=== PATIENT | female | born 1980 | race Caucasian/White ===

== ENCOUNTER → 2020-01-17 | Outpatient (CLI) | payer BC ==
[~2020-01-17] MED LIST: ACET325T9 PO; CETI10TA74 PO; DOXY100C2 PO; LANS30CA PO; LOSA100T14 PO
[2020-01-17 10:02] LABS: BASO # 0.1 x10^3/uL (0.0-0.2); BASO % 1 % (0-3); EOS # 0.2 x10^3/uL (0.0-0.7); EOS % 3 % (0-3); HEMATOCRIT 40.8 % (36.0-47.0); HEMOGLOBIN 13.8 g/dL (12.0-15.5); LYMPH # 1.4 x10^3/uL (1.0-4.8); LYMPH % 16 % (24-48); MEAN CORPUSCULAR HEMOGLOBIN 30 pg (25-35); MEAN CORPUSCULAR HGB CONC 34 g/dL (31-37); MEAN CORPUSCULAR VOLUME 90 fL (79-100); MONO # 0.8 x10^3/uL (0.0-1.1); MONO % 10 % (0-9); NEUT # 6.1 x10^3/uL (1.8-7.7); NEUT % 71 % (31-73); PLATELET COUNT 331 x10^3/uL (140-400); RED BLOOD COUNT 4.55 x10^6/uL (3.50-5.40); RED CELL DISTRIBUTION WIDTH 15.3 % (11.5-14.5); WHITE BLOOD COUNT 8.6 x10^3/uL (4.0-11.0)
== END | disposition home or self-care (01) ==
LOC: SURGPAT 09:26
PROVIDERS: ATTEND Obstetrics & Gynecology
DX: Z01.818 Encounter for other preprocedural examination (principal)
CPT/HCPCS: 36415; 85025; U0003-CS

== ENCOUNTER → 2020-01-20 | Outpatient (CLI) | payer BC ==
--- NOTE | 2020-01-22 18:40 | HP ---
ADMIT DATE: 01/22/2020 CHIEF COMPLAINT AND HISTORY OF PRESENT ILLNESS: This patient is a 39-year-old white female who is a 0, para 0, history of ovarian cyst and also blocked fallopian tubes. Her menstrual periods have been very heavy, having lower quadrant pain in both lower quadrants. She is a patient of Dr. Annabel Khalil referred for pelvic pain, heavy uterine bleeding and also history of ovarian cyst and she does have a history of kidney stones, which has been treated and she also has a GI problem and she is on medication for that. Her last Pap smear has remained normal and she has had a lithotripsy for removal of kidney stones. At the present time, she is admitted to the hospital because of constant pelvic pain and heavy bleeding with the period and also blocked fallopian tubes and ovarian cyst. ALLERGIES: None known. PAST MEDICAL HISTORY: Reveals she was a smoker, not alcoholic, not on any drugs. REVIEW OF SYSTEMS: Essentially negative. PHYSICAL EXAMINATION: GENERAL: Reveals she is obese. VITAL SIGNS: Stable. HEAD, EYES, NOSE, THROAT: Within normal limits. LUNGS: Clear. HEART: Sounds regular sinus rhythm. ABDOMEN: Feels soft, tenderness in both lower quadrants. PELVIC: Shows external genitalia being normal. Cervical os is closed. On bimanual exam, uterus feels bulky and tenderness in the right adnexal area and also mild tenderness in the left lower quadrant as well. No uterine bleeding noted at the time of the examination. EXTREMITIES: No edema of feet. IMPRESSION: Pelvic pain, menorrhagia, polycystic ovarian syndrome, blocked fallopian tubes. PLAN: Abdominal hysterectomy, bilateral salpingo-oophorectomy. The details of the surgery, the risks and complications including hemorrhage, infection, injury to the bladder or bowel has been explained to the patient and she is willing for the operation at the present time. ARNOLD KRUSE MD DR: HAROLDO/abhilash JOB#: [id number] / [id number]
--- NOTE | 2020-02-18 11:20 | DS ---
DATE OF DISCHARGE: 01/25/2020 SUBJECTIVE: The patient is a 39-year-old white female who is a 0, para 0 with history of ovarian cyst and also blocked fallopian tubes. Her menstrual periods have been very heavy, having lower quadrant pain on both lower quadrants in the abdomen. She was referred by her family physician, Dr. Annabel Khalil, for pelvic pain and heavy bleeding with the periods and also the history of ovarian cysts. She does also have a history of kidney stones, which has been treated. She has a GI problem as well and is on medication. The patient was admitted to the hospital for abdominal hysterectomy and bilateral salpingo-oophorectomy at this time. OBJECTIVE: VITAL SIGNS: Normal. HEAD, EYES, NOSE, AND THROAT: Within normal limits. LUNGS: Clear. HEART: Heart sounds regular sinus rhythm. ABDOMEN: Soft and tenderness in both lower quadrants. PELVIC: Shows external genitalia normal. Cervical os closed. On bimanual exam, uterus is slightly enlarged and bulky. Tenderness in the right adnexal area more than the left adnexal area. No uterine bleeding noted at the time of the examination. HOSPITAL COURSE: She did undergo abdominal hysterectomy and bilateral salpingo-oophorectomy under general anesthesia. Postoperatively, she did well. No complications. The patient was dismissed to home care on 01/25/2020 with the advice to come back to the office in 2 weeks for postoperative care and checkup, and she was sent home with pain pills and postop instructions at this time. DIAGNOSES: Pelvic pain, menorrhagia, polycystic ovaries, and blocked fallopian tubes. POSTOPERATIVE DIAGNOSES: Leiomyoma of the uterus, polycystic ovaries, and benign endometrium. PLAN: She will be followed in the office in 2 weeks for further care and treatment. ARNODL KRUSE MD DR: HAROLDO/abhilash JOB#: [id number] / [id number]
== END | disposition home or self-care (01) ==
LOC: LAB 10:11
PROVIDERS: ATTEND Obstetrics & Gynecology
DX: Z11.59 Encounter for screening for other viral diseases (principal)
CPT/HCPCS: U0003-CS

== ENCOUNTER 2020-01-23 07:32 | Inpatient (IN) | payer BC ==
[2020-01-23] VITALS (8 sets, daily range): BP systolic 110–156; BP diastolic 64–95
[~2020-01-23] VITALS: Ht 162.6 cm; Wt 78.0 kg
[~2020-01-23 07:32] MED LIST changes: -DOXY100C2 PO; +GELATIN SPONGE SIZE 100. ONE; +GELATIN SPONGE SIZE 12-7MM SPONGE. ONE; +IV RINGERS,LACTATED 1000ML 1,000 ML IV SCH; +LIDOCAINE 1% PF 2 ML VIAL. ID PRN; +ONDANSETRON PF 4 MG/2 ML VIAL. IV PRN; +PROCHLORPERAZINE 10 MG/2 ML VIAL. IV PRN; +fentaNYL PF VIAL 100 MCG/2 ML VIAL IV PRN
[2020-01-23] MEDS ORDERED: PROPOFOL 10 MG/ML (20ML) VIAL. IV ONE (08:45)
[2020-01-23] MEDS ORDERED: fentaNYL PF VIAL 100 MCG/2 ML VIAL ONE (08:45)
[2020-01-23] MEDS ORDERED: ROCURONIUM 50 MG/5 ML VIAL. ONE ×2 (08:46→09:17)
[2020-01-23] MEDS ORDERED: fentaNYL PF VIAL 250 MCG/5 ML VIAL ONE (09:18)
[2020-01-23] MEDS ORDERED: ONDANSETRON PF 4 MG/2 ML VIAL. ONE (09:44)
[2020-01-23] MEDS ORDERED: DEXAMETHASONE SOD PHOS 4 MG/ML VIAL ONE (09:44)
[2020-01-23] MEDS ORDERED: SEVOFLURANE > 120 MINUTES. IH ONE (10:37)
[2020-01-23] MEDS ORDERED: NEOSTIGMINE METHYLSULFATE 5 MG/5 ML SYRINGE. ONE (10:38)
[2020-01-23] MEDS ORDERED: GLYCOPYRROLATE 1 MG/5 ML VIAL. ONE (10:38)
[2020-01-23] MEDS ORDERED: MORPHINE SULFATE 2 MG/ML VIAL. ONE (10:56)
[2020-01-23] MEDS ORDERED: PROCHLORPERAZINE 10 MG/2 ML VIAL. ONE (10:56)
[2020-01-23] MEDS: MORPHINE SULFATE 2 MG/ML VIAL. IV PRN ×3 (11:00→11:16)
--- NOTE | 2020-01-23 11:02 | PDOC ---
GENERAL General: 39yrs old lady admitted for Pelvic Pain DUB and Ovarian Cyst. To have surgery done. VITAL SIGNS Vital Signs/I&O: Vital Signs Date Time Temp Pulse Resp B/P (MAP) Pulse Ox O2 Delivery O2 Flow Rate FiO2 01/23/20 08:11 98.0 66 20 150/81 97 Room Air 98.0 ALLERGIES Allergies: Allergies Coded Allergies Type Severity Reaction Last Updated Verified No Known Drug Allergies 01/23/20 No MEDS Medications: Current Medications Medications (Trade) Dose Ordered Sig/Kings Route PRN Reason Start Time Stop Time Status Last Admin Dose Admin Ringer's Solution 1,000 ml @ 30 mls/hr Q24H IV 01/23/20 07:00 01/23/20 18:59 01/23/20 08:44 LAB Lab: Laboratory Tests Test 01/23/20 08:13 POC Urine HCG, Qualitative Hcg negative (Negative) ASSESSMENT & PLAN A&P Under GA Abdominal Hysterectomy and Bilateral Salpingoophorectomy done. EBL 50cc. Bilatera Ovarian Cysts Noted. Justicifation of Admission Dx: Justifications for Admission: Justification of Admission Dx: Yes ARNOLD KRUSE MD Jan 23, 2020 11:02
--- NOTE | 2020-01-23 11:04 | OP ---
DATE OF SURGERY: 01/23/2020 PREOPERATIVE DIAGNOSES: Pelvic pain, polycystic ovarian syndrome, dysfunctional uterine bleeding. POSTOPERATIVE DIAGNOSES: Pelvic pain, polycystic ovarian syndrome, dysfunctional uterine bleeding. OPERATION PERFORMED: Abdominal hysterectomy and bilateral salpingo-oophorectomy. DESCRIPTION OF PROCEDURE: The patient was taken to the operating room under general anesthesia. She was placed in a dorsal supine position. Alfaro catheter introduced into bladder for continuous bladder drainage. Lower abdomen was prepped and draped in the usual manner. Pfannenstiel incision was made, abdomen opened in layers. Visualization of pelvic structures revealed enlarged ovaries on both sides and multiple cysts in the left ovary, which is larger than the right ovary, but both are cystic. The round ligament on either side was clamped, ligated, cut, and sutured with #1 chromic catgut sutures. The infundibulopelvic ligament on either side was clamped, ligated, cut, and sutured with #1 chromic catgut sutures. Thus, both the tubes and ovaries were removed and subjected for pathological examination and after this, the bladder flap peritoneum was dissected. Bladder was pushed way down the lower segment of the uterus and the uterine vessels on either side was isolated, ligated, and cut and sutured with #1 chromic catgut sutures and after the complete bladder reflection, the uterosacral cardinal ligaments on either side was clamped, ligated, cut, and sutured with #1 chromic catgut sutures and a stab wound incision was made below the cervix posteriorly first, incision was extended all around below the cervix. Thus, the uterus with the cervix was removed and subjected for pathological examination. Anterior and posterior vaginal antonio were brought together midline, sutured together using continuous 0 chromic catgut sutures. The angle of the vagina on either side was anchored to the uterosacral cardinal ligaments on either side using [id number] #1 chromic catgut sutures. After the closure of the vaginal cuff, a small piece of Gelfoam sponge was placed below the bladder flap peritoneum. Reperitonealization was done with continuous 0 chromic catgut sutures. After this, there was no bleeding noted. Abdomen closed in layers using continuous 0 chromic catgut sutures for the peritoneum, the muscle, the fascia, 3-0 plain continuous sutures applied for subcutaneous tissue, 3-0 Vicryl subcutaneous sutures were placed. Pressure dressing was given. The patient was sent to the recovery room in good condition. No complications encountered at time of the procedure. Estimated blood loss about 50 mL. Postoperative condition is stable. ARNOLD KRUSE MD DR: HAROLDO/abhilash JOB#: [id number] / [id number]
[2020-01-23] MEDS: HYDROmorphone 2 MG/ML VIAL IV PRN ×10 (11:05→21:45)
[2020-01-23] MEDS ORDERED: HYDROmorphone 2 MG/ML VIAL ONE ×2 (11:06→11:58)
[2020-01-23] MEDS ORDERED: MORPHINE SULFATE 4 MG/ML VIAL. IV PRN (13:30)
[2020-01-23] MEDS ORDERED: oxyCODONE/APAP 5/325 1 TAB TABLET PO PRN (13:30)
[2020-01-23] MEDS: oxyCODONE/APAP 5/325 1 TAB TABLET PO PRN ×2 (16:00→20:19)
--- NOTE | 2020-01-23 20:00 | NUR ---
Patient had a an estimated 270ml blood loss. There was a fully saturated pad and partially saturated check. Will continue to monitor
--- NOTE | 2020-01-24 00:42 | NUR ---
Patient had a 25ml blood clot on her menstrual pad. Patient is alert and orientated and vital signs are stable. Will continue to monitor.
[2020-01-24 00:45] VITALS: BP 152/93
[2020-01-24] MEDS: HYDROmorphone 2 MG/ML VIAL IV PRN ×2 (01:52→05:51)
[2020-01-24 06:05] VITALS: BP 123/90
--- NOTE | 2020-01-24 08:08 | PDOC ---
GENERAL General: Patient Feeling better. Abdomen soft. Has some Pelvic Pain. VITAL SIGNS Vital Signs/I&O: Vital Signs Date Time Temp Pulse Resp B/P (MAP) Pulse Ox O2 Delivery O2 Flow Rate FiO2 01/24/20 06:05 98.3 88 20 123/90 (101) Room Air 98.3 01/24/20 05:51 100 2.0 I & O 01/23/20 01/23/20 01/24/20 15:00 23:00 07:00 Intake Total 2000 ml 450 ml Output Total 500 ml 1400 ml 500 ml Balance 1500 ml -950 ml -500 ml ALLERGIES Allergies: Allergies Coded Allergies Type Severity Reaction Last Updated Verified No Known Drug Allergies 01/23/20 No MEDS Medications: Current Medications Medications (Trade) Dose Ordered Sig/Kings Route PRN Reason Start Time Stop Time Status Last Admin Dose Admin Morphine Sulfate (Morphine Sulfate) 4 mg PRN Q4HRS PRN IV PAIN 01/23/20 13:30 01/23/20 17:49 Oxycodone/ Acetaminophen (Percocet 5/325) 2 tab PRN Q4HRS PRN PO PAIN 01/23/20 14:00 01/23/20 20:19 Lorazepam (Ativan) 1 mg 1X PRN PO ANXIETY / AGITATION 01/23/20 19:30 01/23/20 19:32 Hydromorphone HCl (Dilaudid) 2 mg PRN Q4HRS PRN IV PAIN 01/23/20 19:30 01/24/20 05:51 LAB Lab: Laboratory Tests Test 01/23/20 08:13 POC Urine HCG, Qualitative Hcg negative (Negative) ASSESSMENT & PLAN A&P Vital Signs Stable. Incision healing ok. Explained to Patient Operative Findings. Patient had Large Ovarian Cysts on both sides. Plan Dismissal in Am tomorrow. Justicifation of Admission Dx: Justifications for Admission: Justification of Admission Dx: Yes ARNOLD KRUSE MD Jan 24, 2020 08:08
[2020-01-24] MEDS: DOCUSATE SODIUM 100 MG CAPSULE. PO PRN ×2 (08:31→20:16)
[2020-01-24] MEDS: oxyCODONE/APAP 5/325 1 TAB TABLET PO PRN ×4 (08:32→20:16)
[2020-01-24 08:45] VITALS: BP 129/91
[2020-01-24] MEDS ORDERED: FLUCONAZOLE 100 MG TABLET. PO SCH (11:30)
[2020-01-24] MEDS: IBUPROFEN 200 MG TABLET. PO PRN ×2 (14:26→20:16)
[2020-01-24 15:54] VITALS: BP 120/81
--- NOTE | 2020-01-24 18:06 | PATHOLOGY ---
[facility] Accession Number: [id number] . 01 Material submitted: . PART A: ovary - RIGHT FALLOPIAN TUBE AND OVARY. Modifiers: right PART B: ovary - LEFT FALLOPIAN TUBE, OVARY, AND UTERUS. Modifiers: left . 01 Clinical history: . DUB, pelvic pain, ovarian cyst . 02 Diagnosis: A. Fallopian tube and ovary, right salpingo-oophorectomy: - Endometriosis of fallopian tube, focal. - Mild hydrosalpinx. - Small paratubal cyst. - Hemorrhagic regressing luteinized cyst and small cystic follicle of ovary. . B. Uterus and detached fallopian tube and ovary, hysterectomy with left salpingo-oophorectomy: - Uterine serosal adhesions, focal. - Squamous hyperplasia and mild chronic inflammation of exocervix, focal. - Early secretory endometrium. - Adenomyosis, uterine corpus, subbasal, focal. - Mild hydrosalpinx of fallopian tube. - Cystic follicles and hemorrhagic corpus luteum cyst of ovary. . (JPM:dulce maria; 01/24/2020) [facility] 01/24/2020 1658 Local . 02 Comment: There is no atypia or evidence of malignancy. (JPM:dulce maria; 01/24/2020) . 02 Electronically signed: . Santino Lizama MD, Pathologist NPI- [id number] . 01 Gross description: . A. The specimen is received in formalin, labeled "Brandy Scot Saxena fallopian tube and ovary". Received is an 8 g clinically right adnexa consisting of a non-fimbriated fallopian tube measuring 6.5 cm in length by up to 1.0 cm in diameter attached to a 2.6 x 2.1 x 1.3 cm ovary. Sectioning through the fallopian tube reveals a pinpoint to dilated lumen filled with blood-tinged fluid. Sectioning through the ovary reveals several cystic structures ranging in size from 0.1 to 0.4 cm filled with clear fluid. The remaining cut surfaces display pale horton, normal ovarian stroma. The specimen is submitted representatively in cassette A1. . B. The specimen is received in formalin labeled "Evelyn Gongora fallopian tube, ovary, uterus". Received is a 48 g, 6.8 x 4.0 x 3.1 cm uterus with attached cervix and detached adnexa, weighing 12 g. The uterine serosa is pink-horton to pink-arriaga in appearance with a slight amount of adhesions identified on the posterior aspect. The 0.1 cm cervical os is surrounded by pale horton, smooth ectocervical mucosa. Surrounding the cervix, vaginal cuff is identified around the entire periphery. The uterus is oriented using the peritoneal reflection and the anterior paracervical margin is inked black. The uterus is opened laterally to reveal a pale horton endocervical canal measuring 2.5 cm in length. The endometrial cavity is triangular measuring 3.6 cm in length by 1.9 cm in width. The endometrium is pale horton, glistening in appearance and measures up to 0.2 cm in thickness. Serial sectioning reveals a horton-pink, trabeculated myometrium measuring up to 1.5 cm in thickness with no grossly distinct nodules or lesions. . The detached adnexa consists of a non-fimbriated fallopian tube measuring 6.1 cm in length by up to 1.6 cm in diameter attached to a 2.6 x 2.2 x 2.2 cm ovary. Sectioning through the fallopian tube reveals a patent to dilated lumen filled with clear fluid. Sectioning through the ovary reveals several cystic structures ranging in size from 0.4 to 0.5 cm filled with blood-tinged fluid. The remainder of the ovary displays pale horton, normal ovarian stroma. The specimen is submitted representatively as follows: . B1 12:00 cervix B2 6:00 cervix B3 serosal adhesions B4 anterior endomyometrium B5 posterior endomyometrium B6-B7 telecommunications sales representative sections of adnexa. (CAA; 01/23/2020) [facility] 1742 Local . 02 Pathologist provided ICD-10: N80.2, N70.11, N83.8, N72, N80.0 . 02 CPT . 217415 Specimen Comment: A courtesy copy of this report has been sent to [phone], [phone] Specimen Comment: [id number] Specimen Comment: Report sent to / DR MILLER Performed at: 01 [facility] [address], [place] [id number] MD Ariel Jefferson MD Phone: [phone] Performed at: 02 [facility] [address], [place] [id number] MD Santino Lizama MD Phone: [phone]
[2020-01-24 20:15] VITALS: BP 129/82
[2020-01-25] MEDS: oxyCODONE/APAP 5/325 1 TAB TABLET PO PRN ×2 (02:36→09:14)
[2020-01-25 02:45] VITALS: BP 123/84
[2020-01-25] MEDS: SIMETHICONE 80 MG TAB.CHEW PO PRN ×2 (02:49→09:13)
[2020-01-25] MEDS: IBUPROFEN 200 MG TABLET. PO PRN ×2 (06:16→13:39)
[2020-01-25] MEDS: DOCUSATE SODIUM 100 MG CAPSULE. PO PRN (09:13)
--- NOTE | 2020-01-25 09:36 | PDOC ---
GENERAL General: Patient has Nausea. No Fever. Likes to go home. VITAL SIGNS Vital Signs/I&O: Vital Signs Date Time Temp Pulse Resp B/P (MAP) Pulse Ox O2 Delivery O2 Flow Rate FiO2 01/25/20 09:14 18 Room Air 01/25/20 02:45 98.1 85 123/84 (97) 97 98.1 I & O 01/24/20 01/24/20 01/25/20 15:00 23:00 07:00 Intake Total 360 ml 1140 ml 400 ml Output Total 300 ml 200 ml Balance 60 ml 940 ml 400 ml ALLERGIES Allergies: Allergies Coded Allergies Type Severity Reaction Last Updated Verified No Known Drug Allergies 01/23/20 No MEDS Medications: Current Medications Medications (Trade) Dose Ordered Sig/Kings Route PRN Reason Start Time Stop Time Status Last Admin Dose Admin Fluconazole (Diflucan) 100 mg QODAY PO 01/24/20 11:30 01/24/20 12:18 Ibuprofen (Motrin) 600 mg PRN Q6HRS PRN PO INFLAMMATION 01/24/20 14:15 01/25/20 06:16 Simethicone (Gas-X) 80 mg PRN AFTMEALHC PRN PO GAS / BLOATING 01/25/20 02:45 01/25/20 09:13 ASSESSMENT & PLAN A&P Vital signs stable. Patient to go home today. Will see her in 2 weeks in office. Justicifation of Admission Dx: Justifications for Admission: Justification of Admission Dx: Yes ARNOLD KRUSE MD Jan 25, 2020 09:36
[2020-01-25] MEDS ORDERED: ACETAMINOPHEN 325 MG TABLET. PO PRN (10:45)
[2020-01-25 11:00] VITALS: BP 132/85
[2020-01-25] MEDS ORDERED: traMADol 50 MG TABLET PO PRN (12:15)
[2020-01-25] MEDS ORDERED: ONDANSETRON ODT 4 MG TAB.RAPDIS. PO PRN (12:15)
[2020-01-25] MEDS ORDERED: BISACODYL 10 MG SUPP.RECT. PR ONE (12:30)
--- NOTE | 2020-01-25 12:30 | NUR ---
Call placed to Dr. Singer regarding pt complaining of increase in pain and nausea. New orders for Zofran, tramadol and a dulcolax supp. Will monitor.
--- NOTE | 2020-01-25 13:45 | NUR ---
Pt reports nausea is gone, pain is a little better and she passed lots of gas but no stool at this time. She reports feeling like she will be able to have a BM when she gets home. I encouraged her to make she doesn't get constipated due to the pain medications. She reports having some laxatives at home.
[2020-01-25 13:48] VITALS: BP 134/85
--- NOTE | 2020-01-25 14:00 | NUR ---
Discharge and follow up instructions reviewed and given to pt. Rx x3 given and tramadol called into [facility] pharmacy on and . Pt verbalized discharge instructions and denied any questions or complaints. Pt ambulated out of the hospital with her sister and staff.
--- NOTE | 2020-01-29 12:57 | HP ---
ADMIT DATE: 01/23/2020 CHIEF COMPLAINT AND HISTORY OF PRESENT ILLNESS: This patient is a 39-year-old white female who is a 0, para 0, history of ovarian cyst and also blocked fallopian tubes. Her menstrual periods have been very heavy, having lower quadrant pain in both lower quadrants. She is a patient of Dr. Annabel Khalil referred for pelvic pain, heavy uterine bleeding and also history of ovarian cyst and she does have a history of kidney stones, which has been treated and she also has a GI problem and she is on medication for that. Her last Pap smear has remained normal and she has had a lithotripsy for removal of kidney stones. At the present time, she is admitted to the hospital because of constant pelvic pain and heavy bleeding with the period and also blocked fallopian tubes and ovarian cyst. ALLERGIES: None known. PAST MEDICAL HISTORY: Reveals she was a smoker, not alcoholic, not on any drugs. REVIEW OF SYSTEMS: Essentially negative. PHYSICAL EXAMINATION: GENERAL: Reveals she is obese. VITAL SIGNS: Stable. HEAD, EYES, NOSE, THROAT: Within normal limits. LUNGS: Clear. HEART: Sounds regular sinus rhythm. ABDOMEN: Feels soft, tenderness in both lower quadrants. PELVIC: Shows external genitalia being normal. Cervical os is closed. On bimanual exam, uterus feels bulky and tenderness in the right adnexal area and also mild tenderness in the left lower quadrant as well. No uterine bleeding noted at the time of the examination. EXTREMITIES: No edema of feet. IMPRESSION: Pelvic pain, menorrhagia, polycystic ovarian syndrome, blocked fallopian tubes. PLAN: Abdominal hysterectomy, bilateral salpingo-oophorectomy. The details of the surgery, the risks and complications including hemorrhage, infection, injury to the bladder or bowel has been explained to the patient and she is willing for the operation at the present time. ARNOLD KRUSE MD DR: HAROLDO/abhilash JOB#: [id number] / [id number]
== END 2020-01-25 14:00 | disposition home or self-care (01) | DRG 743 ==
LOC: OPSVCIP 07:32 → 3 NORTH 13:00
PROVIDERS: ADMIT Obstetrics & Gynecology; ATTEND Obstetrics & Gynecology
PROC: 0UT70ZZ Resection of Bilateral Fallopian Tubes, Open Approach (ICD-10-PCS; 2020-01-23)
PROC: 0UT20ZZ Resection of Bilateral Ovaries, Open Approach (ICD-10-PCS; 2020-01-23)
PROC: 0UT90ZZ Resection of Uterus, Open Approach (ICD-10-PCS; principal; 2020-01-23 09:00)
DX: E28.2 Polycystic ovarian syndrome (principal); N93.8 Other specified abnormal uterine and vaginal bleeding; Z90.710 Acquired absence of both cervix and uterus; R10.2 Pelvic and perineal pain
CPT/HCPCS: 36415; 81025; 86850; 86900; 86901; 88307; A7015; J0690; J0780; J1100; J1170; J2270; J2405; J2704; J2710; J3010; J3490; J7120; A4461; G0378

== ENCOUNTER 2020-01-28 09:45 | Emergency (ER) | payer BC ==
[~2020-01-28] VITALS: Ht 162.6 cm; Wt 78.0 kg
[~2020-01-28 09:45] MED LIST changes: +CETI10TA24 PO; -CETI10TA74 PO; -GELATIN SPONGE SIZE 100. ONE; -GELATIN SPONGE SIZE 12-7MM SPONGE. ONE; -IV RINGERS,LACTATED 1000ML 1,000 ML IV SCH; -LIDOCAINE 1% PF 2 ML VIAL. ID PRN; -ONDANSETRON PF 4 MG/2 ML VIAL. IV PRN; -PROCHLORPERAZINE 10 MG/2 ML VIAL. IV PRN; -fentaNYL PF VIAL 100 MCG/2 ML VIAL IV PRN
[2020-01-28] MEDS ORDERED: IV NORMAL SALINE 1000ML BAG 1,000 ML IV SCH (10:47)
[2020-01-28] MEDS ORDERED: fentaNYL PF VIAL 100 MCG/2 ML VIAL IVP ONE ×2 (11:00→13:45)
--- NOTE | 2020-01-28 11:07 | PHYS DOC ---
General Adult EDM: Chief Complaint: GI PROBLEM HPI: HPI: Patient is a 39 year old Female who presents with postop hysterectomy January [address] Singer. Patient states she is had increased abdominal pain that she states is hard to explain. She states it just feels like " my insides want to fall out". Patient rates her pain 9 out of 10. She is slightly febrile at 100. She states she did have some nausea of which she took nausea medicine this morning at 8:00. She states she is not nauseated at this time. She denies diarrhea, chest pain, shortness of breath, calf tenderness, headache, dizziness, syncope, vomiting, focal weakness, vision changes. She states she is been taking tramadol at home for pain. She states it was not helping so she had Percocet left over and took 1 of those. She is currently on a stool softener and denies constipation. She states that whenever she tries to pee or have a bowel movement bearing-down hurts. She states the vaginal bleeding has stopped. She denies any abnormal vaginal discharge. Review of Systems: Review of Systems: Constitutional: Denies fever or chills. [] Eyes: Denies change in visual acuity. [] HENT: Denies nasal congestion or sore throat. [] Respiratory: Denies cough or shortness of breath. [] Cardiovascular: Denies chest pain or edema. [] GI: + abdominal pain, +nausea, denies vomiting, bloody stools or diarrhea. [] : Denies dysuria. [] Musculoskeletal: Denies back pain or joint pain. [] Integument: Denies rash. [] Neurologic: Denies headache, focal weakness or sensory changes. [] Endocrine: Denies polyuria or polydipsia. [] Lymphatic: Denies swollen glands. [] Psychiatric: Denies depression or anxiety. [] Heart Score: Risk Factors: Risk Factors: DM, Current or recent (<one month) smoker, HTN, HLP, family history of CAD, obesity. Risk Scores: Score 0 - 3: 2.5% MACE over next 6 weeks - Discharge Home Score 4 - 6: 20.3% MACE over next 6 weeks - Admit for Clinical Observation Score 7 - 10: 72.7% MACE over next 6 weeks - Early Invasive Strategies Current Medications: Current Medications Medications (Trade) Dose Ordered Sig/Kings Start Time Stop Time Status Last Admin Dose Admin Fentanyl Citrate (Fentanyl 2ml Vial) 50 mcg 1X ONCE 01/28/20 11:00 01/28/20 11:01 Sodium Chloride 1,000 ml @ 1,000 mls/hr Q1H 01/28/20 10:47 01/28/20 11:46 Allergies: Allergies: Allergies Coded Allergies Type Severity Reaction Last Updated Verified No Known Drug Allergies 01/23/20 No Physical Exam: PE: Constitutional: Well developed, well nourished, no acute distress, non-toxic appearance. Febrile[] HENT: Normocephalic, atraumatic, bilateral external ears normal, oropharynx moist, no oral exudates, nose normal. [] Eyes: PERRLA, EOMI, conjunctiva normal, no discharge. [] Neck: Normal range of motion, no tenderness, supple, no stridor. [] Cardiovascular:Heart rate regular rhythm, no murmur [] Lungs & Thorax: Bilateral breath sounds clear to auscultation [] Abdomen: Bowel sounds normal, tight, generalized tenderness, no masses, no pulsatile masses. [] Skin: Warm, dry, no erythema, no rash. [] Back: No tenderness, no CVA tenderness. [] Extremities: No tenderness, no cyanosis, no clubbing, ROM intact, no edema. [] Neurologic: Alert and oriented X 3, normal motor function, normal sensory function, no focal deficits noted. [] Psychologic: Affect normal, judgement normal, mood normal. [] EKG: EKG: [] Radiology/Procedures: Radiology/Procedures: [] Impression: [facility] [address] [place] [address] IMAGING REPORT Signed PATIENT: PRASHANTH HOFF CACCOUNT: [id number] : 1980 LOCATION: ER AGE: 39 SEX: F EXAM STATUS: REG ER ORD. PHYSICIAN: BISHOP LEON APRN REASON: pain, post op hysterectomy 01/22 PROCEDURE: CT ABD PELV W/ IV CONTRST ONLY CT ABD PELV W/ IV CONTRST ONLY History: Reason: pain, post op hysterectomy 01/22 / Spl. Instructions: IV OMNI 300 75 MLS / History: Technique: After the administration of oral and intravenous contrast, CT imaging was performed of the abdomen and pelvis. Multiplanar images are reviewed. Exposure: One or more of the following individualized dose reduction techniques were utilized for this examination: 1. Automated exposure control 2. Adjustment of the mA and/or kV according to patient size 3. Use of iterative reconstruction technique. Comparison: None Findings: Lower chest: Left lower lobe focal opacity. No pleural effusion. Abdomen and pelvis: The liver, spleen, adrenal glands, pancreas and gallbladder are unremarkable. Punctate nonobstructing intrarenal calculi. No hydronephrosis. Postoperative changes hysterectomy with infiltration of the pelvic mesenteric fat. Small blood products layering within the pelvis. Infiltration of the anterior abdominal wall subcutaneous fat with focus of gas related to postoperative changes. Foci of gas within the urinary bladder. Normal appendix. No evidence of bowel obstruction. No pathologic lymphadenopathy. Bones: No pathologic osseous lesions. Impression: 1. Recent hysterectomy with infiltration of the pelvic fat and layering blood products, may relate to postoperative changes. Recommend follow-up. 2. Foci of gas within the urinary bladder. Recommend correlation for recent instrumentation or infection. 3. Punctate nonobstructing intrarenal calculi. 4. Patchy left lower lobe opacity, likely focal atelectasis. Electronically signed by: Keshav Terry DO (01/28/2020 1:03 PM) [id number] DICTATED and SIGNED BY: KESHAV TERRY DO DATE: 01/28/20 1303 Course & Med Decision Making: Course & Med Decision Making Pertinent Labs and Imaging studies reviewed. (See chart for details) Patient has a low abdominal horizontal incision that is healed together and there is no drainage and edges are approximated. There is no redness. Patient's abdomen is tight and tender generalized. No calf tenderness or unilateral swelling bilateral lower legs. Lungs are clear to auscultation all lobes. Bowel sounds are normoactive. She states that she did call and talk to Dr. Singer and she told her to come into the emergency room. I have spoken to Dr Singer states to start her on Doxycycline 100mg BID. Tylenol for For fever, She states that the patient needs to go to the clinic and get the pain prescription she left for her. She states patient can be discharged home. [] Carlo Disclaimer: Carlo Disclaimer: This electronic medical record was generated, in whole or in part, using a voice recognition dictation system. Departure Departure Impression: Primary Impression: Abdominal pain Qualified Codes: R10.84 - Generalized abdominal pain Disposition: 01 HOME, SELF-CARE Condition: STABLE Referrals: THAIS MILLER MD (PCP) ARNOLD KRUSE MD Patient Instructions: Abdominal Pain (Nonspecific) Additional Instructions: Follow up with Dr Singer as scheduled. behaviour support teacher your pain prescription at the clinic. Take medications as prescribed and with food. Drink plenty of fluids. Scripts Doxycycline Hyclate (DOXYCYCLINE HYCLATE) 100 Mg Capsule 1 CAP PO BID, #20 CAP Prov: BISHOP LEON APRN 01/28/20 Justicifation of Admission Dx: Justifications for Admission: Justification of Admission Dx: Yes BISHOP LEON APRN Jan 28, 2020 11:07
[2020-01-28 11:21] LABS: CALCIUM 8.2 mg/dL (8.5-10.1); GFR 61.7; POTASSIUM 3.8 mmol/L (3.5-5.1)
[2020-01-28 11:23] LABS: BILIRUBIN,URINE NEGATIVE (NEG); CLARITY,URINE CLEAR; COLOR,URINE YELLOW; NITRITE,URINE NEGATIVE (NEG); PROTEIN,URINE NEGATIVE (NEG-TRACE)
[2020-01-28 11:26] LABS: ALBUMIN 3.2 g/dL (3.4-5.0); ALBUMIN/GLOBULIN RATIO 0.8 (1.0-1.7); TOTAL BILIRUBIN 0.4 mg/dL (0.2-1.0); TOTAL PROTEIN 7.3 g/dL (6.4-8.2)
[2020-01-28 11:30] LABS: PROTHROMBIN TIME PATIENT 11.9 SEC (11.7-14.0)
[2020-01-28] MEDS ORDERED: IOHEXOL 300 MG/ML 100ML VIAL. IV ONE (11:30)
[2020-01-28 11:37] LABS: SQUAMOUS EPITHELIAL CELL,UR MOD /LPF
[2020-01-28 11:38] LABS: BACTERIA,URINE MODERATE /HPF (0-FEW)
[2020-01-28 11:42] LABS: BASO % 0 % (0-3); EOS # 0.2 x10^3/uL (0.0-0.7); EOS % 2 % (0-3); HEMATOCRIT 27.5 % (36.0-47.0); HEMOGLOBIN 9.6 g/dL (12.0-15.5); LYMPH # 1.3 x10^3/uL (1.0-4.8); LYMPH % 12 % (24-48); MEAN CORPUSCULAR HEMOGLOBIN 31 pg (25-35); MEAN CORPUSCULAR HGB CONC 35 g/dL (31-37); MEAN CORPUSCULAR VOLUME 90 fL (79-100); MONO # 0.8 x10^3/uL (0.0-1.1); MONO % 8 % (0-9); NEUT # 8.1 x10^3/uL (1.8-7.7); NEUT % 77 % (31-73); PLATELET COUNT 372 x10^3/uL (140-400); RED BLOOD COUNT 3.06 x10^6/uL (3.50-5.40); RED CELL DISTRIBUTION WIDTH 15.2 % (11.5-14.5); WHITE BLOOD COUNT 10.5 x10^3/uL (4.0-11.0)
--- NOTE | 2020-01-28 13:06 | RAD ---
CT ABD PELV W/ IV CONTRST ONLY History: Reason: pain, post op hysterectomy 01/22. Instructions: IV OMNI 300 75 MLS / History: Technique: After the administration of oral and intravenous contrast, CT imaging was performed of the abdomen and pelvis. Multiplanar images are reviewed. Exposure: One or more of the following individualized dose reduction techniques were utilized for this examination: 1. Automated exposure control 2. Adjustment of the mA and/or kV according to patient size 3. Use of iterative reconstruction technique. Comparison: None Findings: Lower chest: Left lower lobe focal opacity. No pleural effusion. Abdomen and pelvis: The liver, spleen, adrenal glands, pancreas and gallbladder are unremarkable. Punctate nonobstructing intrarenal calculi. No hydronephrosis. Postoperative changes hysterectomy with infiltration of the pelvic mesenteric fat. Small blood products layering within the pelvis. Infiltration of the anterior abdominal wall subcutaneous fat with focus of gas related to postoperative changes. Foci of gas within the urinary bladder. Normal appendix. No evidence of bowel obstruction. No pathologic lymphadenopathy. Bones: No pathologic osseous lesions. Impression: 1. Recent hysterectomy with infiltration of the pelvic fat and layering blood products, may relate to postoperative changes. Recommend follow-up. 2. Foci of gas within the urinary bladder. Recommend correlation for recent instrumentation or infection. 3. Punctate nonobstructing intrarenal calculi. 4. Patchy left lower lobe opacity, likely focal atelectasis. Electronically signed by: Keshav Terry DO (01/28/2020 1:03 PM) [id number]
[2020-01-28 13:30] VITALS: BP 137/84
[2020-01-28] MEDS ORDERED: DOXY100C2 PO (13:40)
[2020-01-28] MEDS ORDERED: DOXYCYCLINE HYCLATE 100 MG TABLET PO ONE (13:45)
[2020-01-28] MEDS ORDERED: ACETAMINOPHEN 325 MG TABLET. PO ONE (13:45)
== END 2020-01-28 13:57 | disposition home or self-care (01) ==
LOC: ER 09:45
DX: R10.84 Generalized abdominal pain (principal); R11.0 Nausea; Z90.710 Acquired absence of both cervix and uterus
CPT/HCPCS: 36415; 74177; 80053; 81001; 83690; 85025; 85610; 87086; 96374; 96376; 99285; J3010; J7030; Q9967